=== PATIENT | male | born 1955 | race Caucasian/White ===

== ENCOUNTER → 2016-05-26 | Outpatient (CLI) | payer MEDICARE ==
[~2016-05-26] MED LIST: /AMIO20TA PO; /CELE20CA PO; /WARF25TA PO; /WARF2TA OR; ACET50TA PO; ACET65TA OR; AMIO10TA OR; ASPI81TA85 PO; BABY81CH OR; BACT800T OR; BACT800T5 PO; CEPH500C OR; FERROUS GLUCONATE PO; FOLI1TAB OR; IBUP600T OR; IRON325T3 PO; LOPR50TA PO; LYRI75CA PO; MULTIVIT PO; NAPR500T2 PO; OMEP20TA7 OR; PERC5TAB PO; PERC7.5T12 PO; TRAM50TA2 OR; VICO5TAB16 PO; VITA500T OR
--- NOTE | 2016-05-29 14:04 | SLEEPCENT ---
DATE OF PROCEDURE: 05/26/2016 REQUESTING PROVIDER: Dr. Nye INTERPRETATION: Nocturnal polysomnography was performed for the titration of pressure therapy in this patient with obstructive sleep apnea syndrome, apnea-hypopnea index of 41.1. For testing, a ResMed Quattro full face mask of medium size was used, 4 cm of water pressure were applied to the circuit and the lights were extinguished. 6 hours and 28 minutes of data were reviewed. There were 272 minutes of sleep identified. Sleep latency was prolonged at 29 minutes. Rapid eye movement (REM) latency was short at 46 minutes. Sleep architecture improved with optimal pressure therapy. There were four REM periods appreciated. Overall sleep efficiency was 71.9%. The patient's electrocardiogram (EKG) showed atrial fibrillation with a ventricular response rate averaging 74 beats per minute. Electroencephalogram (EEG) showed reasonably normal waveforms for awake and sleep. Respiratory events were found best palliated on CPAP to a pressure of +8. CPAP tolerance was good. Some limb activity persisted despite pressure therapy, and limb movement arousal index was elevated at 14.3. IMPRESSION: 1. Obstructive sleep apnea syndrome (G47.33). 2. Periodic limb movement disorder (G47.61). Limb movement arousal index of 14.3. 3. Atrial fibrillation. RECOMMENDATIONS: Nightly use of pressure therapy at 8 cm of water is sufficient to treat the patient's respiratory events. Interventions to reduce the frequency of arousals from limb activity should further improve the quality of the patient's sleep.
== END ==
LOC: M SLEEP 21:50
PROVIDERS: ATTEND Internal Medicine Pulmonary Disease
DX: G47.33 Obstructive sleep apnea (adult) (pediatric) (principal); G47.61 Periodic limb movement disorder; I48.91 Unspecified atrial fibrillation

== ENCOUNTER → 2016-08-21 | Outpatient (CLI) | payer MEDICARE ==
[~2016-08-21] MED LIST changes: +E-Z-GAS II EFFERVESCENT PACKET (SODIUM BICARB./CITRIC ACID/SIMETHICONE) As Ordered ONE; +E-Z-HD 98% w/w 340GM SUSP BTL As Ordered ONE; +E-Z-PAQUE 96% w/w SUSP 176GM BTL As Ordered ONE
--- NOTE | 2016-08-21 17:30 | REP ---
ESOPHAGRAM, AIR CONTRAST: The procedure was performed under the direct supervision of dr. Quiroz. the images were reviewed with dr. Quiroz. A single view PA chest x-ray is submitted as a admissions consultant film. There is no change compared to a previous chest x-ray performed on 07/19/2015. Liquid barium and gas-producing granules were given in the erect position as well as liquid barium in the prone oblique position in order to perform a double contrast esophagram examination. The oral and pharyngeal stages of deglutition are unremarkable. 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 During esophageal transport there are a tertiary waves demonstrated. There is no esophagitis, stricture, or mucosal ring. There is a sliding type hiatal hernia present. There is mild gastroesophageal reflux demonstrated to below the level of the dajuan. IMPRESSION: 1. 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 2. Tertiary waves. 3. There is sliding type hiatal hernia present. There is gastroesophageal reflux demonstrated to below the level of the dajuan. 1 minute and 42 seconds of fluoroscopy time was utilized for this procedure. Reviewed by JERALD Powell 08/22/2016 08:22 AEdited and Signed by Zan Quiroz MD 08/22/2016 07:20 P
== END ==
LOC: M RAD 08:15
PROVIDERS: ATTEND Specialist
DX: R93.3 Abnormal findings on diagnostic imaging of other parts of digestive tract (principal); R05 Cough; K21.9 Gastro-esophageal reflux disease without esophagitis

== ENCOUNTER → 2020-04-22 | Outpatient (CLI) | payer MEDICARE ==
[~2020-04-22] MED LIST changes: -/AMIO20TA PO; -/CELE20CA PO; -/WARF25TA PO; -/WARF2TA OR; -ACET50TA PO; -AMIO10TA OR; +AMIO1TAB PO; +CELE1CAP4 PO; +COUM1TAB16 OR; +COUM1TAB18 PO; +DIGO0.123 PO; -E-Z-GAS II EFFERVESCENT PACKET (SODIUM BICARB./CITRIC ACID/SIMETHICONE) As Ordered ONE; -E-Z-HD 98% w/w 340GM SUSP BTL As Ordered ONE; -E-Z-PAQUE 96% w/w SUSP 176GM BTL As Ordered ONE; +HM P99TA PO; +IRON27TA2 PO; +LASI20TA3 PO; +MAPA500T17 PO; +META0.52 PO; +MM S100C PO; +OXYC10TA3 PO; +PACE0.05 OR; +SYNT75TA PO; +THERTAB52 PO; +VITA-243 PO; +WARF-22 PO; +WARF-23 PO
== END ==
LOC: M LABSMTC 10:35
PROVIDERS: ATTEND Anesthesiology
DX: Z01.812 Encounter for preprocedural laboratory examination (principal); Z20.822 Contact with and (suspected) exposure to COVID-19

== ENCOUNTER 2020-04-27 07:03 | Inpatient (IN) | payer MEDICARE ==
[~2020-04-27] VITALS: Ht 167.6 cm; Wt 84.8 kg
[2020-04-27] VITALS (7 sets, daily range): BP systolic 109–134; BP diastolic 68–81
[~2020-04-27 07:03] MED LIST changes: +LIDOCAINE 1% MDV 20ML VIAL SQ PRN; +LR 1,000 ML IV ONE; +MIDAZOLAM INJ 2MG/2ML VIAL (J2250 PER 1MG) IV PRN; +ceFAZolin SOD 2 GM in IV 1 EA IV ONE; +fentaNYL 100 MCG/2 ML INJECTION (J3010) IV PRN
[2020-04-27] MEDS ORDERED: LOVE1INJ SC (07:45)
--- NOTE | 2020-04-27 08:00 | IPN ---
PROGRESS NOTE DATE: 04/27/2020 The patient is seen and examined. He wishes to go ahead with a right total knee arthroplasty. He understands the nature of this; the risks of bleeding, infection, damage to nerves and/or vessels, persistent pain, wear, loosening, blood clots, medical problems, , and fracture among others. Preoperative clearance was obtained.
[2020-04-27] MEDS ORDERED: propofoL 200 MG/20 ML VIAL As Ordered ONE ×2 (08:21→11:14)
[2020-04-27] MEDS ORDERED: MIDAZOLAM INJ 2MG/2ML VIAL (J2250 PER 1MG) As Ordered ONE (08:22)
[2020-04-27] MEDS ORDERED: fentaNYL 100 MCG/2 ML INJECTION (J3010) As Ordered ONE (08:22)
[2020-04-27 08:27] LABS: INR 1.07; PROTHROMBIN TIME 14.1 SECONDS (12.5-14.3)
[2020-04-27] MEDS ORDERED: LIDOCAINE 1% MDV 20ML VIAL XX ONE (08:30)
[2020-04-27] MEDS ORDERED: ROPIvacaine 0.5% 30ML INJECTION (J2795 PER 1MG) XX ONE (08:30)
[2020-04-27] MEDS ORDERED: VASOPRESSIN INJ 20 UNITS/ML VIAL As Ordered ONE (08:30)
[2020-04-27] MEDS ORDERED: dexameTHASONE 10MG/1ML VIAL PRES.FREE (J1100 PER 1MG) XX ONE (08:30)
[2020-04-27] MEDS ORDERED: TRANEXAMIC ACID 100 MG/ML 10ML VIAL As Ordered ONE (09:30)
[2020-04-27] MEDS ORDERED: EPINEPHrine INJ 1 MG/ML 1ML AMP As Ordered ONE (09:30)
[2020-04-27] MEDS ORDERED: BUPIVACAINE HCL 0.25% 10ML VIAL As Ordered ONE (09:30)
[2020-04-27] MEDS ORDERED: BUPIVACAINE LIPOSOME/PF 1.3% 20ML VIAL (13.3MG/ML)(EXPAREL)(C9290 PER1MG) As Ordered ONE (09:30)
[2020-04-27] MEDS ORDERED: ceFAZolin 1GM VIAL (J0690 PER 500MG) As Ordered ONE (09:30)
[2020-04-27] MEDS ORDERED: ONDANSETRON 4MG/2ML VIAL As Ordered ONE (10:59)
[2020-04-27] MEDS ORDERED: ACETAMINOPHEN 1000MG 100ML IV BTL (OFIRMEV) (J0131 PER 10MG) As Ordered ONE (10:59)
[2020-04-27] MEDS ORDERED: KETOROLAC 60MG 2ML VIAL As Ordered ONE (10:59)
--- NOTE | 2020-04-27 12:07 | REP ---
INDICATION: POST OP ARTHROSCOPY. COMPARISON: None. TECHNIQUE: AP and lateral views. FINDINGS: AP and lateral views of the right knee demonstrate right knee arthroplasty components in good position relative to the [place] bones and relative to each other. Anterior skin yasmeen are seen.. No fracture or subluxation is seen. No opaque foreign body noted. There is extra-articular soft tissue emphysema. IMPRESSION: Status post right knee arthroplasty.. <Electronically signed by Gavin Cruz > 04/27/20 [id number]
[2020-04-27] MEDS ORDERED: HYDROMORPHONE HCL 0.5 MG/ 0.5 ML SYRINGE (J1170 PER 1) IV PRN (12:15)
[2020-04-27] MEDS ORDERED: ONDANSETRON 4MG/2ML VIAL IV PRN ×2 (12:15→12:45)
[2020-04-27] MEDS ORDERED: ALBUTEROL 90 MCG/ACT 8GM HFA INHALER INH PRN (12:15)
[2020-04-27] MEDS ORDERED: oxyCODONE 5MG TAB PO PRN (12:15)
[2020-04-27] MEDS ORDERED: LR 1,000 ML IV SCH ×2 (12:15→12:45)
[2020-04-27] MEDS ORDERED: fentaNYL 100 MCG/2 ML INJECTION (J3010) IV PRN (12:15)
--- NOTE | 2020-04-27 12:23 | RO ---
OPERATIVE NOTE DATE OF OPERATION: 04/27/2020 PREOPERATIVE DIAGNOSIS: Right knee osteoarthritis. POSTOPERATIVE DIAGNOSIS: Right knee osteoarthritis. PROCEDURE: Right total knee arthroplasty using an Attune rotating platform size 4 femur, size 5 tibial tray, 7 polyethylene, 35 patellar button. SURGEON: Boby Terrazas M.D. METHODS EXAMINER: Tavo Infante PA-C ANESTHESIA: Spinal. ESTIMATED BLOOD LOSS: 50 mL. COMPLICATIONS: None. DESCRIPTION OF PROCEDURE: The patient was taken to the operating room and placed in the supine position after spinal anesthesia was induced. The right lower extremity was prepped and draped in the usual sterile fashion. A time-out was performed. The tourniquet was inflated. A longitudinal incision was made over the anterior aspect of the knee. Sharp dissection was carried down through the subcutaneous tissue. I controlled hemostasis with a cautery. I performed a medial parapatellar arthrotomy per routine. Everted the patella, flexed the knee up, and removed osteophytes from the femur. I then used a canal initiating reamer on the femoral side followed by the intramedullary guide on the femur. This was set at 5 degrees of valgus a 9 mm cut. This was pinned in place. The distal femoral cut was made and soft tissues were protected. I then sized the femur to be a 4. The pin holes were placed in the end of the femur and the size 4 cutting block was placed with the external rotating having been dilated in. The remaining four cuts were made protecting the soft tissues. I then freed up the ACL and the distal PCL and prepared the tibial surface. The tibial alignment guide was then placed and 4 mm off the low side, which was the medial side which had severe arthritis, was dialed in. This was pinned in place and the appropriate amount of valgus and posterior slope had been used. Proximal tibia cut was made. I removed the bone and I then prepared the sulcus cut on the femur. The PCL was intact. The spacer was then used on either side, and soft tissue and osteophytes were removed from either side of the knee. I then sized the tibia to be a size 5 tibial tray. This was secured in place, drilled, broached, and trial components were placed. I had also used the spacer blocks prior to this and decided between likely a 7 possibly a 6 spacer. The 7 trial was first used and this had excellent stability and range of motion with no liftoff of the femur. There was full extension. I then prepared the patella with a free-hand cut removing about 7-8 mm of bone. This was then sized to be a 35, drilled, and the patella was then placed, which tracked very nicely. The trial components were removed after I drilled the end of the femur, and the clinical project assistant prepared the bone cement in the modern technique. I then irrigated copiously, dried the bony surfaces, and cemented in the components. Held the patella in place with a patellar clamp and then, we copiously irrigated. I had placed the Exparel in the knee with marcaine prior to placement of the components and injected the posterior capsule after aspirating in addition to surrounding the knee. Once the components were cemented in place, I irrigated and placed the TXA, began closing the deep layer with #1 Vicryl suture and running STRATAFIX suture. I again irrigated, closed the remaining wound with running STRATAFIX suture for a watertight closure. I put the knee through a range of motion after closure; of course, I had removed the patellar clamp once the cement hardened, and the patella tracked very nicely and the knee had excellent stability. I irrigated the subcutaneous, closed the subcutaneous with 2-0 Vicryl, and the skin with yasmeen. The tourniquet had been deflated when the cement was hardened. A sterile dressing was applied, and he was taken to the recovery room in stable condition. There were no known complications. The plan will be routine postop. The clinical project assistant was instrumental in holding retractors, assisting in mixing the bone cement, and assisting in wound closure.
--- NOTE | 2020-04-27 12:39 | CR ---
CONSULTATION DATE: 04/27/2020 REFERRING PHYSICIAN: GEORGE CEBALLOS MD HISTORY OF PRESENT ILLNESS: Travis Reddy was seen in the Recovery Room after undergoing right knee replacement and his primary care physician is in [place], [place]. He has a history of hypertensive heart disease, coronary disease status post CABG, BPH, iron deficiency, pulmonary hypertension, history of mitral valve replacement, on chronic anticoagulant therapy, atrial fibrillation/flutter, SYLVIA for which he uses CPAP. He was seen by Dr. Murray for preop clearance. He notes the patient underwent mitral valve replacement on 08/11/19, was a minimally invasive procedure, also had tricuspid valve annuloplasty and PFO repair, had a pacemaker implanted for complete heart block during the procedure. He had a nuclear stress test on 06/30/2019 that showed probable ischemia of lateral wall of left ventricle, ejection fraction of 55%. Echocardiogram showed normal ejection fraction. It showed the valvular disorder for which he underwent these procedures subsequently. The procedure he underwent on 08/05/2019 was a redo right thoracotomy with a heart port replacement of the mitral valve with a mosaic 33 mm, PFO closure and repair, tricuspid valve repair and then the pacemaker insertion subsequent to that. It looks like he had an echocardiogram done on 02/04/2020, ejection fraction 50-55%. Bioprosthetic mitral valve noted with normal function, mild stenosis, left atrium severely dilated at 61 mm. Right atrium is moderately dilated. Tricuspid valve annular ring prosthesis present, trace tricuspid regurgitation. OUTPATIENT MEDICATIONS: Vitamin C, warfarin 10 mg three days a week, 5 mg four days a week, Xopenex via nebulizer, ferrous gluconate 325 mg daily, levothyroxine 75 mcg daily, gabapentin 300 mg daily, metoprolol ER 25 mg one-half a tablet (12.5 mg) daily, furosemide 20 mg one-half tablet (10 mg), Digoxin 0.125 mg daily, aspirin 81 mg a day, magnesium 400 mg b.i.d., trazodone 100 mg q.h.s., Voltaren gel p.r.n. for arthritis, Percocet as needed. (These are from his PCP preop note. Per pt, they are incorrect, not taking metoprolol or trazodone.) PAST SURGICAL HISTORY: Appendectomy in 1962, right inguinal hernia repair in 2010, left inguinal hernia repair in 2003, mitral valve replacement, bioprosthetic, done in 2019, right total hip in 02/03, left total hip 05/07. FAMILY HISTORY: Father had coronary disease, hypertension, aneurysm, BPH and prostate cancer. Mother had what sounds like congestive heart failure. SOCIAL HISTORY: Nonsmoker. ALLERGIES: None known. REVIEW OF SYSTEMS: No epistaxis, rectal bleeding, urinary bleeding, chest pain, shortness of breath or palpitations. PHYSICAL EXAMINATION: VITAL SIGNS: Per flow sheet. GENERAL APPEARANCE: Conversant, in no distress, "I am feeling no pain." HEENT: Unremarkable. LUNGS: Clear. HEART: Irregular rhythm. There is a 1/6 systolic ejection murmur. ABDOMEN: Soft, nontender. No masses. EXTREMITIES: No cyanosis, clubbing or edema. IMPRESSION: 1. Atrial fibrillation, his rate is controlled. Recommend continuing his metoprolol and Digoxin. Restart warfarin for thromboembolic prophylaxis, daily INRs ordered. 2. COPD, continue nebulized bronchodilator. 3. Hypothyroidism, continue levothyroxine. 4. Reports of coronary artery disease according to his primary care physician, he had a coronary artery bypass but those records are not documented in the cardiology appointment. He indicates to continue his metoprolol and his aspirin. 5. Insomnia/sleep disorder, continue trazodone 100 mg q.h.s. MTDD
[2020-04-27] MEDS ORDERED: MORPHINE 2 MG/ML 1ML VIAL (J2270) IV PRN (12:45)
[2020-04-27] MEDS ORDERED: MORPHINE 4 MG/ML 1ML VIAL/SYRINGE (J2270) IV PRN (12:45)
[2020-04-27] MEDS ORDERED: ACETAMINOPHEN TAB 650MG DOSE (2X325MG) PO PRN (12:45)
[2020-04-27 13:11] LABS: INR 1.11; PROTHROMBIN TIME 14.5 SECONDS (12.5-14.3)
[2020-04-27] MEDS ORDERED: FERR32TA PO (14:10)
[2020-04-27] MEDS ORDERED: ENOX80IN3 SC (14:10)
[2020-04-27] MEDS ORDERED: META28.32 PO (14:10)
[2020-04-27] MEDS ORDERED: VOLT1GEL15 TOP (14:11)
[2020-04-27] MEDS: DIGOXIN 0.125 MG TAB PO SCH (15:35)
[2020-04-27] MEDS: PERCOCET 5MG/325MG TAB PO PRN (15:36)
[2020-04-27] MEDS ORDERED: WARFARIN SOD 5MG TAB PO SCH (17:00)
[2020-04-27] MEDS ORDERED: WARFARIN SOD 5MG TAB PO ONE (17:00)
[2020-04-27] MEDS ORDERED: ASPIRIN 81 MG ENTERIC TAB PO ONE (18:00)
[2020-04-27] MEDS: ceFAZolin SOD 2 GM in IV 1 EA IV SCH (18:14)
[2020-04-27] MEDS ORDERED: traZODone 100 MG TAB PO SCH (21:00)
[2020-04-28] MEDS: ceFAZolin SOD 2 GM in IV 1 EA IV SCH (01:35)
[2020-04-28] MEDS: PERCOCET 5MG/325MG TAB PO PRN ×2 (01:44→09:00)
[2020-04-28 02:00] VITALS: BP 117/68
[2020-04-28 05:59] LABS: HEMATOCRIT 38.2 % (42.0-52.0); HEMOGLOBIN 12.5 g/dl (13.5-17.5); MEAN CORPUSCULAR HEMOGLOBIN 29.6 pg (27.0-33.0); MEAN CORPUSCULAR HGB CONC 32.7 g/dl (32.0-36.5); MEAN CORPUSCULAR VOLUME 90.3 fl (80.0-96.0); PLATELET COUNT, AUTOMATED 252 10^3/uL (150-450); RED BLOOD COUNT 4.23 10^6/uL (4.30-6.10); WHITE BLOOD COUNT 17.4 10^3/uL (4.0-10.0)
[2020-04-28 06:00] VITALS: BP 119/75
[2020-04-28] MEDS ORDERED: LEVOTHYROXINE 75MCG TABLET (0.075MG) PO SCH (06:00)
[2020-04-28 06:09] LABS: INR 1.16; PROTHROMBIN TIME 15.1 SECONDS (12.5-14.3)
[2020-04-28] MEDS ORDERED: PERC5TAB12 PO (06:19)
[2020-04-28 06:20] LABS: BLOOD UREA NITROGEN 19 MG/DL (7-18); CALCIUM LEVEL 8.5 MG/DL (8.8-10.2); CARBON DIOXIDE LEVEL 28 MEQ/L (21-32); CHLORIDE LEVEL 107 MEQ/L (98-107); CREATININE FOR GFR 0.79 MG/DL (0.70-1.30); GLOMERULAR FILTRATION RATE > 60.0 (>49); GLUCOSE, FASTING 101 MG/DL (70-100); POTASSIUM SERUM 4.2 MEQ/L (3.5-5.1); SODIUM LEVEL 139 MEQ/L (136-145)
--- NOTE | 2020-04-28 08:23 | IPN ---
PROGRESS NOTE DATE: 04/28/2020 SUBJECTIVE: Travis is seen on [address], doing well postoperatively status post right total knee arthroplasty. There was some discrepancy between the medications the patient was taking and the medications listed on his primary care provider's preop consultation, specifically the patient was not taking metoprolol, trazodone or gabapentin but we ultimately cleared that up; I asked him to clarify his meds list next time he is at their office. He has no chest pain, shortness of breath, or palpitations. He is eager to go home. PHYSICAL EXAMINATION: VITAL SIGNS: Stable. LUNGS: Clear. HEART: Regular rate and rhythm. ABDOMEN: Soft, nontender. No masses. EXTREMITIES: No peripheral edema. Good strength in the arms and legs. LABORATORY DATA: Electrolytes are unremarkable. White count is 17.4, hemoglobin 12.5, platelets 252,000. IMPRESSION: 1. Leukocytosis, probably reactive leukocytosis. There is no sign of infection, I do not think that should be in the way of his discharge. 2. Atrial fibrillation, rate is controlled. Continue Digoxin. He is on Xarelto for thromboembolic prophylaxis. He takes warfarin as an outpatient. Defer to primary care provider whether reverts to warfarin or continue Xarelto after his postoperative anticoagulation. 3. COPD, continue using bronchodilator at home. 4. Hypothyroidism, continue current dose of levothyroxine. 5. Reported coronary artery disease, continue his aspirin therapy. Assurance Senior does not mention a history of coronary artery disease. Patient appears stable for discharge.
[2020-04-28] MEDS ORDERED: MIRALAX *UNIT DOSE* 17GM PACKET PO SCH (09:00)
[2020-04-28] MEDS ORDERED: MOM 30ML SUSPENSION UDC PO SCH (09:00)
[2020-04-28] MEDS ORDERED: METOPROLOL SUCC *XL* 12.5MG PER 1/2 TAB (TopROL *XL*) PO SCH (09:00)
[2020-04-28] MEDS ORDERED: ASPIRIN 81 MG ENTERIC TAB PO SCH (09:00)
[2020-04-28] MEDS: DIGOXIN 0.125 MG TAB PO SCH (09:01)
[2020-04-28] MEDS ORDERED: RIVAROXABAN 10 MG TAB (XARELTO) PO SCH (18:00)
== END 2020-04-28 12:35 | disposition home or self-care (01) | DRG 470 ==
LOC: M SDC 07:03 → EDSTATUS 07:30 → M MS5PR 13:40 → M SDC 13:53 → M MS5PR 13:54
PROVIDERS: ADMIT Orthopaedic Surgery; ATTEND Orthopaedic Surgery
PROC: 0SRC0J9 Replacement of Right Knee Joint with Synthetic Substitute, Cemented, Open Approach (ICD-10-PCS; principal; 2020-04-27 09:25)
DX: M17.11 Unilateral primary osteoarthritis, right knee (principal); I48.20 Chronic atrial fibrillation, unspecified; I48.92 Unspecified atrial flutter; I11.9 Hypertensive heart disease without heart failure; N40.0 Benign prostatic hyperplasia without lower urinary tract symptoms; D50.9 Iron deficiency anemia, unspecified; I27.20 Pulmonary hypertension, unspecified; Z95.2 Presence of prosthetic heart valve; Z79.01 Long term (current) use of anticoagulants; G47.33 Obstructive sleep apnea (adult) (pediatric); Z95.0 Presence of cardiac pacemaker; Z79.899 Other long term (current) drug therapy; E03.9 Hypothyroidism, unspecified

== ENCOUNTER → 2021-02-02 | Outpatient (CLI) | payer MEDICARE ==
[~2021-02-02] MED LIST changes: +ENOX80IN3 SC; +FERR32TA PO; -HM P99TA PO; -LIDOCAINE 1% MDV 20ML VIAL SQ PRN; +LOVE1INJ SC; -LR 1,000 ML IV ONE; +META28.32 PO; -MIDAZOLAM INJ 2MG/2ML VIAL (J2250 PER 1MG) IV PRN; +PERC5TAB12 PO; +POTA99TA14 PO; +VOLT1GEL15 TOP; -ceFAZolin SOD 2 GM in IV 1 EA IV ONE; -fentaNYL 100 MCG/2 ML INJECTION (J3010) IV PRN
[2021-02-02 13:32] LABS: BASO % 0.2 % (0.0-1.0); EOS # 0.2 10^3/uL (0.0-0.5); EOS % 1.8 % (0.0-3.0); HEMATOCRIT 47.2 % (42.0-52.0); LYMPH # 1.4 10^3/uL (1.5-5.0); MEAN CORPUSCULAR HGB CONC 31.8 g/dl (32.0-36.5); MEAN CORPUSCULAR VOLUME 91.3 fl (80.0-96.0); MONO # 1.2 10^3/uL (0.0-0.8); MONO % 11.6 % (2.0-8.0); NEUTROPHILS # 7.1 10^3/uL (1.5-8.5); PLATELET COUNT, AUTOMATED 318 10^3/uL (150-450); RED BLOOD COUNT 5.17 10^6/uL (4.30-6.10); WHITE BLOOD COUNT 9.9 10^3/uL (4.0-10.0)
[2021-02-02 14:14] LABS: ERYTHROCYTE SEDIMENTATION RATE 4 mm/hr (0-20)
== END ==
LOC: M PLALAB 09:12
PROVIDERS: ATTEND Orthopaedic Surgery
DX: Z96.651 Presence of right artificial knee joint (principal)

== ENCOUNTER → 2021-05-28 | Outpatient (CLI) | payer MEDICARE | LOC: M RAD 09:28 | PROVIDERS: ATTEND Orthopaedic Surgery | DX: Z96.651 Presence of right artificial knee joint (principal) | CPT/HCPCS: 78315; A9503 ==

== ENCOUNTER 2021-06-05 08:01 | Emergency (ER) | payer MEDICARE ==
[~2021-06-05] VITALS: Ht 170.2 cm; Wt 87.7 kg
[2021-06-05] MEDS ORDERED: METR-265 (08:13)
[2021-06-05] MEDS ORDERED: CIPR-249 (08:13)
[2021-06-05 09:32] LABS: BASO % 0.2 % (0.0-1.0); EOS # 0.2 10^3/uL (0.0-0.5); EOS % 2.7 % (0.0-3.0); HEMATOCRIT 43.3 % (42.0-52.0); HEMOGLOBIN 14.2 g/dl (13.5-17.5); LYMPH # 1.1 10^3/uL (1.5-5.0); LYMPH % 12.4 % (24.0-44.0); MEAN CORPUSCULAR HEMOGLOBIN 28.7 pg (27.0-33.0); MEAN CORPUSCULAR HGB CONC 32.8 g/dl (32.0-36.5); MEAN CORPUSCULAR VOLUME 87.7 fl (80.0-96.0); MONO # 0.9 10^3/uL (0.0-0.8); MONO % 10.2 % (2.0-8.0); NEUTROPHILS # 6.5 10^3/uL (1.5-8.5); PLATELET COUNT, AUTOMATED 292 10^3/uL (150-450); RED BLOOD COUNT 4.94 10^6/uL (4.30-6.10); WHITE BLOOD COUNT 8.8 10^3/uL (4.0-10.0)
[2021-06-05] MEDS ORDERED: FLEET ENEMA PR SCH (09:45)
[2021-06-05] MEDS ORDERED: CIPROFLOXACIN 500MG TABLET PO ONE (09:50)
[2021-06-05] MEDS ORDERED: metroNIDAZOLE (FLAGYL) 500MG TABLET PO ONE (09:50)
[2021-06-05 10:00] LABS: ALT/SGPT 36 U/L (12-78); BILIRUBIN,DIRECT 0.2 MG/DL (0.0-0.2); BILIRUBIN,TOTAL 0.6 MG/DL (0.2-1.0); BLOOD UREA NITROGEN 15 MG/DL (7-18); CALCIUM LEVEL 9.1 MG/DL (8.8-10.2); CARBON DIOXIDE LEVEL 30 MEQ/L (21-32); CHLORIDE LEVEL 109 MEQ/L (98-107); CREATININE FOR GFR 0.77 MG/DL (0.70-1.30); GLOMERULAR FILTRATION RATE > 60.0 (>49); GLUCOSE, FASTING 98 MG/DL (70-100); LIPASE 78 U/L (73-393); POTASSIUM SERUM 4.8 MEQ/L (3.5-5.1); SODIUM LEVEL 142 MEQ/L (136-145); TOTAL PROTEIN 6.9 GM/DL (6.4-8.2)
[2021-06-05] MEDS ORDERED: SENN1TAB41 PO (11:28)
[2021-06-05] MEDS ORDERED: MIRA3350 PO (11:29)
[2021-06-05] MEDS ORDERED: MAGN100T PO (11:29)
[2021-06-05 11:46] VITALS: BP 170/80
== END 2021-06-05 12:40 | disposition home or self-care (01) ==
LOC: M ED 08:01
DX: K59.00 Constipation, unspecified (principal); K57.92 Diverticulitis of intestine, part unspecified, without perforation or abscess without bleeding; I48.91 Unspecified atrial fibrillation; I50.9 Heart failure, unspecified; I10 Essential (primary) hypertension; N40.0 Benign prostatic hyperplasia without lower urinary tract symptoms; E03.9 Hypothyroidism, unspecified; M19.90 Unspecified osteoarthritis, unspecified site; Z79.02 Long term (current) use of antithrombotics/antiplatelets; Z79.899 Other long term (current) drug therapy

== ENCOUNTER → 2022-01-09 | Outpatient (REF) | payer MEDICARE ==
[~2022-01-09] MED LIST changes: +CIPR-249; +MAGN100T PO; +METR-265; +MIRA3350 PO; +SENN1TAB41 PO
[2022-01-09 19:47] LABS: SOURCE, BODY FLUID GLUCOSE RT KNEE
[2022-01-09 20:01] LABS: SOURCE, BODY FLUID RT KNEE
[2022-01-09 20:02] LABS: SYNOVIAL FLUID COLOR PALE YELLOW (COLORLESS)
[2022-01-09 21:09] LABS: SOURCE, BODY FLUID CRYSTALS RT KNEE
[2022-01-09 21:10] LABS: CRYSTALS, BODY FLUID NONE SEEN (NONE SEEN)
== END ==
LOC: M LAB REF 16:46
PROVIDERS: ATTEND Orthopaedic Surgery
DX: M25.561 Pain in right knee (principal)

== ENCOUNTER → 2022-01-24 | Outpatient (REF) | payer MEDICARE ==
[2022-01-24 14:13] LABS: SOURCE, BODY FLUID RT KNEE; SYNOVIAL FLUID COLOR BROWN (COLORLESS)
[2022-01-24 14:43] LABS: CRYSTALS, BODY FLUID NONE SEEN (NONE SEEN); SOURCE, BODY FLUID CRYSTALS RT KNEE
[2022-01-24 15:34] LABS: SOURCE, BODY FLUID GLUCOSE RT KNEE
== END ==
LOC: M LAB REF 13:20
PROVIDERS: ATTEND Orthopaedic Surgery
DX: M25.561 Pain in right knee (principal)

== ENCOUNTER → 2024-07-16 | Outpatient (REF) | payer OTHER, MEDICAID ==
[~2024-07-16] MED LIST changes: -SENN1TAB41 PO; +SENN1TAB85 PO
== END ==
LOC: M LAB REF 12:52
PROVIDERS: ATTEND Registered Nurse
DX: Z01.810 Encounter for preprocedural cardiovascular examination (principal)

== ENCOUNTER 2024-07-21 07:13 | Day surgery (SDC) | payer MEDICARE ==
[~2024-07-21] VITALS: Ht 170.2 cm; Wt 96.7 kg
[~2024-07-21 07:13] MED LIST changes: +ALBU8.5H; +ATOR1TAB21 PO; +ECOT81TA5 PO; +ENTR1TAB PO; +FARX1TAB3 PO; +GLYCOPYRROLATE INJ 0.2 MG/ML 2 ML VIAL As Ordered ONE; +HYDR-3713 PO; +LEVO88TA3 PO; +LIDOCAINE 2% 100MG/5ML SDV (FOR ANES.) As Ordered ONE; +METO50TA7 PO; +MIDAZOLAM INJ 2MG/2ML VIAL As Ordered ONE; +OMEP40CA5 PO; +ONDANSETRON 4MG 2ML VIAL As Ordered ONE; +PROBCAP2 PO; +SPIR-10 PO; +XARE20TA PO; +fentaNYL 100 MCG/2 ML INJECTION As Ordered ONE; +propofoL 200 MG/20 ML VIAL As Ordered ONE
[2024-07-21] MEDS ORDERED: INSULIN LISPRO (NovoLOG) PER UNIT SC PRN (07:40)
[2024-07-21] MEDS ORDERED: GLUCAGON INJ 1MG VIAL SC PRN (07:40)
[2024-07-21] MEDS ORDERED: GLUCOSE 4 GM CHEW PO PRN (07:40)
[2024-07-21] MEDS ORDERED: DEXTROSE 50% 50ML SYRINGE IV PRN (07:40)
[2024-07-21] MEDS: LR 1,000 ML IV SCH (08:41)
[2024-07-21] MEDS: ceFAZolin SODIUM 2 GM VIAL As Ordered ONE (09:09)
[2024-07-21] MEDS: LIDOCAINE 1% SDV 30ML VIAL As Ordered ONE (09:19)
[2024-07-21] MEDS: ceFAZolin 1GM VIAL As Ordered ONE (09:19)
[2024-07-21] MEDS ORDERED: ePHEDrine SULFATE 25 MG/5 ML(5MG/ML) SYRINGE As Ordered ONE (09:25)
[2024-07-21] MEDS ORDERED: ceFAZolin SOD 2 GM IV ONCE IV ONE (10:10)
[2024-07-21 10:45] VITALS: BP 157/84; TEMP 96.6; O2SAT 95
== END 2024-07-21 11:10 | disposition home or self-care (01) ==
LOC: M SDC 07:13
PROVIDERS: ATTEND Internal Medicine Cardiovascular Disease
DX: T82.111A Breakdown (mechanical) of cardiac pulse generator (battery), initial encounter (principal); I48.21 Permanent atrial fibrillation; I49.5 Sick sinus syndrome; I10 Essential (primary) hypertension; I34.0 Nonrheumatic mitral (valve) insufficiency; K57.92 Diverticulitis of intestine, part unspecified, without perforation or abscess without bleeding; D64.9 Anemia, unspecified; E78.5 Hyperlipidemia, unspecified; G47.33 Obstructive sleep apnea (adult) (pediatric); N40.0 Benign prostatic hyperplasia without lower urinary tract symptoms; Z79.51 Long term (current) use of inhaled steroids; Z79.899 Other long term (current) drug therapy; Z79.01 Long term (current) use of anticoagulants
CPT/HCPCS: 33228; C1785; J0690; J1100; J1596; J2250; J2405; J3010